=== PATIENT | female | born 1955 ===

== ENCOUNTER 2018-06-13 12:59 | Inpatient (IN) | payer OTHER ==
[~2018-06-13] VITALS: Ht 157.5 cm; Wt 55.3 kg
[2018-06-13] MEDS ORDERED: ZANTAC300 MG (13:20)
[2018-06-13] MEDS ORDERED: CLONAZEPAM2 MG (13:20)
[2018-06-13] MEDS ORDERED: PROTONIX20 MG (13:20)
[2018-06-16] MEDS ORDERED: PEPCID20 MG PO (08:44)
[2018-06-16] MEDS ORDERED: CIPRO500 MG PO (08:44)
[2018-06-16] MEDS ORDERED: FLAGYL500MG PO (08:44)
== END 2018-06-16 11:07 | disposition home or self-care (01) | DRG 392 ==
LOC: ER 12:59 → MEDI 22:14
PROC: BW25Y0Z Computerized Tomography (CT Scan) of Chest, Abdomen and Pelvis using Other Contrast, Unenhanced and Enhanced (ICD-10-PCS; principal; 2018-06-13)
DX: K57.32 Diverticulitis of large intestine without perforation or abscess without bleeding (principal)